=== PATIENT | male | born 1955 | race Caucasian/White ===

== ENCOUNTER 2017-07-24 13:48 | Emergency (ER) | payer BC ==
[~2017-07-24] VITALS: Ht 185.4 cm; Wt 74.8 kg
[2017-07-24] MEDS ORDERED: ALBUTEROL/IPRATROPIUM 3 ML NEB NEB ONE (16:30)
[2017-07-24] MEDS ORDERED: SODIUM CHLORIDE 0.9% 1000ML 1,000 ML IV SCH (16:30)
[2017-07-24] MEDS ORDERED: IBUPROFEN 600 MG TAB PO STA (17:07)
--- NOTE | 2017-07-24 17:07 | Diagnostic Imaging Report ---
PROCEDURE: CHEST SINGLE (PORTABLE) COMPARISON: None. INDICATIONS: COUGH FINDINGS: LUNGS: No consolidations or edema. PLEURA: No effusions or pneumothorax. HEART \T\ MEDIASTINUM: The heart is within normal size-limits. BONES \T\ SOFT TISSUES: No acute findings. Posttraumatic deformity of the distal right clavicle. Surgical clips project over the midepigastric region. CONCLUSION: No acute thoracic abnormality. Dictated by: Rodrick Neil M.D. on 07/24/2017 at 17:15 Electronically approved by: Rodrick Neil M.D. on 07/24/2017 at 17:15
[2017-07-24 17:25] LABS: BASOPHILS % 0.2 % (0.0-1.0); HEMATOCRIT 45.5 % (38.2-49.6); HEMOGLOBIN 15.9 g/dL (14.0-18.0); LYMPHOCYTES % 15.3 % (18.0-39.1); MEAN CORPUSCULAR HEMOGLOBIN 35.7 pg (28-32); MEAN CORPUSCULAR HGB CONC 34.9 g/dL (31-35); MEAN CORPUSCULAR VOLUME 102.2 fL (81-99); MONOCYTES # (AUTO) 0.7 (0.2-0.8); NEUTROPHILS # (AUTO) 4.6 (2.1-6.9); NEUTROPHILS % 73.2 % (38.7-80.0); PLATELET COUNT 172 x10e3/uL (140-360); RED BLOOD COUNT 4.45 x10e6/uL (4.3-5.7); RED CELL DISTRIBUTION WIDTH 13.3 % (11.7-14.4)
[2017-07-24] MEDS ORDERED: IBUPROFEN 600 MG TAB ONE (17:38)
[2017-07-24] MEDS ORDERED: ULTRAM 50MG50 MG (17:39)
[2017-07-24] MEDS ORDERED: QUETIAPINE FUM300 MG (17:39)
[2017-07-24] MEDS ORDERED: ZOLPIDEM TARTRA10 MG (17:39)
[2017-07-24] MEDS ORDERED: ESCITALOPRAM OX20 MG (17:39)
[2017-07-24] MEDS ORDERED: METHOCARBAMOL750 MG (17:39)
[2017-07-24 17:45] LABS: ALANINE AMINOTRANSFERASE 21 IU/L (0-55); ALBUMIN 3.9 g/dL (3.5-5.0); ALBUMIN/GLOBULIN RATIO 1.1 (0.8-2.0); ALKALINE PHOSPHATASE 80 IU/L (40-150); ANION GAP 16.9 mmol/L (8-16); BLOOD UREA NITROGEN 5 mg/dL (7-26); BUN/CREATININE RATIO 5 (6-25); CARBON DIOXIDE 23 mmol/L (22-29); CHLORIDE 100 mmol/L (98-107); EST GLOMERULAR FILTRATION RATE > 60 ML/MIN (60-); GLUCOSE 115 mg/dL (74-118); POTASSIUM 3.9 mmol/L (3.5-5.1); SODIUM 136 mmol/L (136-145)
[2017-07-24 18:04] LABS: BILIRUBIN,URINE NEGATIVE (NEGATIVE); KETONES,URINE NEGATIVE (NEGATIVE); LEUKOCYTE ESTERASE ,URINE NEGATIVE (NEGATIVE); NITRITE,URINE NEGATIVE (NEGATIVE); PROTEIN,URINE DIPSTICK NEGATIVE (NEGATIVE); URINE UROBILINOGEN 0.2 mg/dL (0.2 - 1)
[2017-07-24 18:06] LABS: CLARITY,URINE SL CLOUDY (CLEAR); COLOR,URINE YELLOW (YELLOW)
[2017-07-24 18:14] LABS: CREATINE KINASE MB 0.8 ng/mL (0.00-5.00); TROPONIN I 0.007 ng/mL (0-0.300)
== END 2017-07-24 19:32 | disposition home or self-care (01) ==
LOC: ER 13:48
DX: R50.9 Fever, unspecified (principal); R05 Cough; R11.2 Nausea with vomiting, unspecified; J09.X2 Influenza due to identified novel influenza A virus with other respiratory manifestations
CPT/HCPCS: 36415; 71010; 80053; 81001; 82550; 82553; 83880; 84484; 85025; 87086; 87400; 93005; 99283; J7030

== ENCOUNTER 2022-08-24 00:12 | Emergency (ER) | payer MEDICARE, OTHER ==
[~2022-08-24] VITALS: Ht 185.4 cm; Wt 74.8 kg
[~2022-08-24 00:12] MED LIST: ESCITALOPRAM OX20 MG; METHOCARBAMOL750 MG; QUETIAPINE FUM300 MG; ULTRAM 50MG50 MG; ZOLPIDEM TARTRA10 MG
[2022-08-24] MEDS ORDERED: ONDANSETRON HCL 4 MG ORAL DISINTEGRATING TAB PO ONE (00:30)
[2022-08-24] MEDS ORDERED: ONDANSETRON ODT4 MG PO (00:44)
[2022-08-24] MEDS ORDERED: ONDANSETRON HCL 4 MG ORAL DISINTEGRATING TAB ONE (00:45)
[2022-08-24 02:48] VITALS: BP 106/82
== END 2022-08-24 02:25 | disposition home or self-care (01) ==
LOC: ER 00:23
DX: R50.9 Fever, unspecified (principal); S00.83XA Contusion of other part of head, initial encounter; M54.2 Cervicalgia; S20.211A Contusion of right front wall of thorax, initial encounter; M25.511 Pain in right shoulder; M25.551 Pain in right hip; M24.821 Other specific joint derangements of right elbow, not elsewhere classified; W01.0XXA Fall on same level from slipping, tripping and stumbling without subsequent striking against object, initial encounter; Y93.K1 Activity, walking an animal; Y92.89 Other specified places as the place of occurrence of the external cause; F41.9 Anxiety disorder, unspecified; F32.A Depression, unspecified
CPT/HCPCS: 70450; 71101; 72125; 73030; 73080; 73502; 99284; Q0162

== ENCOUNTER 2023-01-15 23:01 | Emergency (ER) | payer MEDICARE, OTHER ==
[~2023-01-15] VITALS: Ht 185.4 cm; Wt 74.8 kg
[~2023-01-15 23:01] MED LIST changes: +ONDANSETRON ODT4 MG PO
[2023-01-15] MEDS ORDERED: SODIUM CHLORIDE 0.9% 1000ML 1,000 ML IV ONE (23:30)
[2023-01-15 23:45] LABS: BASOPHILS % 0.3 % (0.0-1.0); EOSINOPHILS # (AUTO) 0.2 (0.0-0.4); EOSINOPHILS % 3.2 % (0.0-6.0); HEMATOCRIT 33.9 % (38.2-49.6); HEMOGLOBIN 11.9 g/dL (14.0-18.0); LYMPHOCYTES # (AUTO) 1.7 (1.0-3.2); MEAN CORPUSCULAR HEMOGLOBIN 38.6 pg (28-32); MEAN CORPUSCULAR HGB CONC 35.1 g/dL (31-35); MEAN CORPUSCULAR VOLUME 110.1 fL (81-99); MONOCYTES # (AUTO) 0.6 (0.2-0.8); MONOCYTES % 8.7 % (4.4-11.3); NEUTROPHILS # (AUTO) 4.8 (2.1-6.9); NEUTROPHILS % 64.4 % (38.7-80.0); PLATELET COUNT 235 x10e3/uL (140-360); RED BLOOD COUNT 3.08 x10e6/uL (4.3-5.7); RED CELL DISTRIBUTION WIDTH 12.8 % (11.7-14.4)
[2023-01-15 23:56] LABS: ALBUMIN 3.2 g/dL (3.5-5.0); ALBUMIN/GLOBULIN RATIO 1.1 (0.8-2.0); ANION GAP 11.6 mmol/L (8-16); CALCIUM 8.1 mg/dL (8.4-10.2); CREATININE, SERUM 0.99 mg/dL (0.72-1.25); POTASSIUM 3.6 mmol/L (3.5-5.1)
[2023-01-16 02:04] VITALS: BP 109/82; PULSE 65; RESP 16; TEMP 98; O2SAT 100
== END 2023-01-16 02:06 | disposition home or self-care (01) ==
LOC: ER 23:04
DX: S01.01XA Laceration without foreign body of scalp, initial encounter (principal); W01.0XXA Fall on same level from slipping, tripping and stumbling without subsequent striking against object, initial encounter; Y93.01 Activity, walking, marching and hiking; Y92.89 Other specified places as the place of occurrence of the external cause; F41.9 Anxiety disorder, unspecified; R94.31 Abnormal electrocardiogram [ECG] [EKG]
CPT/HCPCS: 12001; 36415; 70450; 71045; 72125; 80053; 84484; 85025; 93005; 99284; J7030